=== PATIENT | female | born 1970 | race Caucasian/White ===

== ENCOUNTER 2025-06-11 08:43 | Outpatient (CLI) | payer OTHER, SELFPAY ==
[2025-06-13 01:55] LABS: HPV Source Cervix
[2025-06-16 11:07] LABS: Pap Test Digital Imaging Done
== END 2025-06-11 08:44 | disposition home or self-care (01) ==
PROVIDERS: Visit Provider Registered Nurse
DX: Z12.4 Encounter for screening for malignant neoplasm of cervix (principal); N39.3 Stress incontinence (female) (male)
CPT/HCPCS: 87086; 87624; 87625; 88141; 88142; 88175